=== PATIENT | male | born 1960 | race Caucasian/White ===

== ENCOUNTER → 2019-03-17 | Outpatient (CLI) | payer OTHER ==
[2019-03-17] VITALS (10 sets, daily range): BP systolic 110–158; BP diastolic 65–96
[~2019-03-17] MED LIST: AMLODIPINE BESYL5 MG PO; COQ-10100 MG PO; COZAAR100 MG PO; ELIQUIS5 MG PO; FISH OIL 1,0001 EAC9 PO; FLECAINIDE ACET50 M1 PO; LIPITOR 20 MG T20 M1 PO; LIPITOR10 MG PO; METFORMIN HCL500 MG PO; THERA M PLUS T1 EAC2 PO; TOPROL XL100 MG PO
[2019-03-17 11:13] LABS: HEMATOCRIT 43.3 % (42.0-52.0); HEMOGLOBIN 14.4 gm/dL (14.0-18.0); MCH 29.4 pg (26.0-34.0); MCHC 33.1 g/dL (28.0-37.0); MCV 88.8 fL (80.0-100.0); RBC 4.88 mil/uL (4.50-6.00); RDW-CV 13.5 % (10.5-14.5); WBC 7.1 thou/uL (4.0-11.0)
[2019-03-17 11:36] LABS: TOTAL BILIRUBIN 0.5 mg/dL (<0.1-1.0); TOTAL PROTEIN 7.7 g/dL (6.4-8.2)
--- NOTE | 2019-03-17 12:29 | CARD ---
[facility] [address] [place] [address] CARDIAC CATH REPORT Name: WENYD TRAVIS Room: [facility]#: [id number] Admission: 03/17/19 Attend Phys: Shravan Young MD Discharge: Date of : 56 Report #: [id number] THIS REPORT FOR: //name// CC: Valeriano Young PROCEDURE: DC cardioversion. INDICATION: Persistent atrial fibrillation. DESCRIPTION OF PROCEDURE: After informed consent was obtained, the patient was brought to the cardiac holding area. The patient was given intravenous Versed and fentanyl for adequate sedation. Once the patient was adequately sedated, he received a single biphasic shock of 300 joules. He failed to convert to sinus rhythm. At this point in time, a second biphasic cardioversion was attempted at 360 joules; again he failed to convert to sinus rhythm. The patient was then given boluses of 5 mg of Lopressor and 150 mg of amiodarone. Two additional attempts of cardioversion at 360 joules were performed with failure to achieve sinus rhythm. Of note, the patient did have several seconds worth of sinus rhythm that reverted almost immediately to atrial fibrillation. The patient remained stable throughout the procedure. IMPRESSION: 1. Persistent atrial fibrillation. 2. Unsuccessful DC cardioversion. <ELECTRONICALLY SIGNED> By: Shravan Young MD, [facility] 03/17/19 [address] [place] [address] Nena Young MD, JOSE /nt
--- NOTE | 2019-03-17 16:04 | EKG ---
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 03/17/19 1604 1050 1050 Lakhwinder Villasenor MD, FACC /EPI
== END | disposition home or self-care (01) ==
LOC: M.CL 09:51
PROVIDERS: Internal Medicine Cardiovascular Disease
DX: I48.19 Other persistent atrial fibrillation (principal); Z98.890 Other specified postprocedural states; Z79.899 Other long term (current) drug therapy; Z79.01 Long term (current) use of anticoagulants

== ENCOUNTER → 2019-04-19 | Outpatient (CLI) | payer OTHER ==
[2019-04-19] VITALS (8 sets, daily range): BP systolic 139–158; BP diastolic 74–95
[2019-04-19 09:56] LABS: HEMATOCRIT 39.8 % (42.0-52.0); HEMOGLOBIN 13.6 gm/dL (14.0-18.0); MCH 30.1 pg (26.0-34.0); MCHC 34.2 g/dL (28.0-37.0); MCV 87.9 fL (80.0-100.0); MPV 7.4 fl. (7.2-11.1); RBC 4.53 mil/uL (4.50-6.00); RDW-CV 13.7 % (10.5-14.5); WBC 9.7 thou/uL (4.0-11.0)
[2019-04-19 11:21] LABS: POTASSIUM 3.7 mmol/L (3.5-5.1)
[2019-04-19 11:26] LABS: ALBUMIN 3.2 g/dL (3.4-5.0); TOTAL BILIRUBIN 0.4 mg/dL (<0.1-1.0); TOTAL PROTEIN 6.9 g/dL (6.4-8.2)
--- NOTE | 2019-04-19 14:00 | EKG ---
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
--- NOTE | 2019-04-19 14:01 | EKG ---
[place] [address] ELECTROCARDIOGRAM REPORT Name: WENDY TRAVIS Room: [facility]#: [id number] Admission: 04/19/19 Attend Phys: Shravan Young MD Discharge: Date of : 56 Report #: [id number] THIS REPORT FOR: //name// [facility] Test Date: 2019-04-19 Test Time: 11:26:53 Pat Name: WENDY TRAVIS Department: Room: Gender: M [employer] Law Clerk: : 1960 Requested By: Shravan Young Order Number: [id number] Reading MD: Gage Owen Measurements Intervals [place] Rate: 64 P: 44 ME: 158 QRS: 9 QRSD: 99 T: 31 QT: 452 QTc: 467 Interpretive Statements Sinus rhythm nonspecific t wave abnormalities Electronically Signed On 04-19-2019 14:00:40 ASSOCIATE PROFESSOR OF ART by Gage Owen [email or web address] <ELECTRONICALLY SIGNED> By: Gage Owen MD, [facility] 04/19/19 1400 1126 1126 Gage Owen MD, FACC /EPI
--- NOTE | 2019-04-20 08:57 | CARD ---
[facility] [address] [place] [address] CARDIAC CATH REPORT Name: WENDY TRAVIS Room: [facility]#: [id number] Admission: 04/19/19 Attend Phys: Shravan Young MD Discharge: Date of : 56 Report #: [id number] THIS REPORT FOR: //name// CC: Valeriano Young DATE OF SERVICE: 04/19/2019 PROCEDURE: DC cardioversion. INDICATION: Persistent atrial fibrillation. DESCRIPTION OF PROCEDURE: After informed consent was obtained, the patient was brought to the cardiac holding area. The patient received intravenous Versed and fentanyl for conscious sedation. The patient was given a single biphasic shock of 360 joules. The patient had a few beats of sinus rhythm followed by recurrent atrial fibrillation. At this point in time, the patient was given an IV bolus of amiodarone 150 mg. The patient underwent a second cardioversion with a biphasic shock of 360 joules, again maintaining sinus rhythm for a few seconds, followed by recurrent atrial fibrillation. The patient was then given 5 mg of IV Lopressor with a third biphasic shock of 360 joules converting to sinus rhythm. The patient received intermittent boluses of fentanyl and Versed to maintain adequate sedation. The patient tolerated the procedure well without complication. IMPRESSION: 1. Persistent atrial fibrillation. 2. Successful direct current cardioversion to normal sinus rhythm after receiving boluses of IV amiodarone and IV Lopressor. <ELECTRONICALLY SIGNED> By: Shravan Young MD, [facility] 04/20/19 0857 1040 [id number] Nena Young MD, JOSE /nt
== END | disposition home or self-care (01) ==
LOC: M.CL 09:02
PROVIDERS: Internal Medicine Cardiovascular Disease
DX: I48.19 Other persistent atrial fibrillation (principal); Z98.890 Other specified postprocedural states; Z79.01 Long term (current) use of anticoagulants; Z79.899 Other long term (current) drug therapy